=== PATIENT | female | born 2000 | race Caucasian/White ===

== ENCOUNTER 2020-05-09 18:40 | Emergency (ER) | payer OTHER, SELFPAY ==
[2020-05-09 19:03] VITALS: BP 127/76; PULSE 65; RESP 16; TEMP 36.2; O2SAT 99; BMI 32.5
[2020-05-09] MEDS: KETOROLAC 60 MG/2 ML VIAL 30 MG IM (19:56)
--- NOTE | 2020-05-09 20:54 | ED.FEMALEGU ---
HPI - Female Genitourinary General Chief complaint: Abdominal Pain Stated complaint: states has a cyst Time Seen by Provider: 05/09/20 18:52 Source: patient Mode of arrival: Ambulatory Limitations: no limitations History of Present Illness HPI Narrative: 19-year-old female daily smoker presents with a chief complaint of ongoing left lower quadrant pain. She has been having the symptoms for a few days and presented to the emergency department in [place] yesterday. She had a very thorough evaluation including labs as well as an ultrasound and was diagnosed with a UTI and an ovarian cyst. 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 Patient presents tonight due to ongoing pain. She states she has not been taking any of her pain medications, only Tylenol. She has been taking the antibiotics however. She denies any new symptoms. She is not dizzy nor weak or lightheaded. She denies chest pain or shortness of breath. She has no fever or chills. She denies vaginal bleeding or discharge. MD Complaint: pelvic pain Onset (ago): day(s) Location: LLQ Severity: moderate Quality: Aching Duration: constant Patient : No Related Data Previous Rx's Medication Instructions Recorded ketorolac 10 mg PO Q6H PRN #20 tab 05/09/20 Review of Systems Constitutional Constitutional: Denies chills, Denies fatigue, Denies fever(s), Denies frequent falls, Denies lethargy and Denies weakness Eyes Eyes: Denies change in vision, Denies eye discharge, Denies irritation and Denies loss of vision ENT Ears, Nose, Mouth, and Throat: Denies change in voice, Denies dizziness, Denies neck pain, Denies sore throat and Denies throat swelling Cardiovascular Cardiovascular: Denies chest pain, Denies irregular heart rhythm, Denies lightheadedness, Denies palpitations, Denies dyspnea, Denies dyspnea on exertion and Denies orthopnea Respiratory Respiratory: Denies cough, Denies dyspnea, Denies dyspnea on exertion and Denies wheezing Gastrointestinal Gastrointestinal: Denies abdominal pain, Denies change in bowel habits, Denies diarrhea, Denies nausea and Denies vomiting Genitourinary Genitourinary: Reports pelvic pain Musculoskeletal Musculoskeletal: Denies neck pain and Denies numbness Integumentary/Breasts Skin/Breast: Denies pruritus, Denies erythema, Denies rash and Denies wounds Neurologic Neurologic: Denies behavioral changes, Denies confusion, Denies dizziness, Denies frequent falls, Denies loss of vision, Denies numbness and Denies weakness Psychiatric Psychiatric: Denies anxiety, Denies behavioral changes, Denies confusion, Denies depression, Denies homicidal ideation and Denies suicidal ideation Endocrine Endocrine: Denies fatigue, Denies flushing and Denies palpitations Hematologic/Lymphatic Hematologic/Lymphatic: Denies easy bruising Allergic/Immunologic Allergic/Immunologic: Denies urticaria, Denies throat swelling and Denies wheezing Patient History alcohol intake frequency: holidays/special occasions only Substance Use Type: does not use Exam Narrative Exam Narrative: GEN: AOx3 and in mild distress EYES: Pupils are equal, round, and reactive to light and accommodation. Extraoccular muscles are intact bilaterally. There is no subconjunctival hemorrhage or exudate. CHEST: Lungs are clear to auscultation bilaterally and free of wheezes, rales, or rhonchi. Heart rate is regular rhythm, there are no murmurs, clicks, rubs, or gallops. There is no chest wall tenderness. ABD: Abdomen is soft and nontender. There is no guarding or rebound. Bowel sounds are normal in all 4 quadrants. There is no mass or organomegaly. EXT: Full painless ROM of all extremities with no loss of sensation or strength. SKIN: Warm, pink, and dry. No erythema or rash Initial Vital Signs Initial Vital Signs: Vital Signs Temperature 97.1 F L 05/09/20 19:03 Pulse Rate 65 05/09/20 19:03 Respiratory Rate 16 05/09/20 19:03 Blood Pressure 127/76 05/09/20 19:03 Pulse Oximetry 99 05/09/20 19:03 Course Course Course Narrative: Records from [place] were difficult to obtain, but eventually received and confirmed what patient described. Very well documented exam including normal pelvic exam. Urine notes UTI and pelvic ultrasound is very reassuring and only notes L ovarian cyst. Orders Ordered: Discontinued Medications Ketorolac Tromethamine (Ketorolac 60 Mg/2 Ml Vial) 30 mg IM NOW ONE Stop: 05/09/20 19:27 Last Admin: 05/09/20 19:56 Dose: 30 mg Documented by: YESSY Vital Signs Vital signs: Vital Signs - 8 hr 05/09/20 19:03 05/09/20 22:37 Temperature 97.1 F L Pulse Rate 65 67 Respiratory Rate 16 14 Blood Pressure 127/76 121/84 Pulse Oximetry 99 99 MDM - Female Genitourinary MDM Narrative Medical decision making narrative: Patient's exam and story are very reassuring. Once the chart no was obtained from the outside facility I discussed with the patient that in my opinion very little would be gained by doing additional diagnostics, lab work or even pelvic exam. She was in agreement. We discussed ongoing use of antibiotics as well as the addition of NSAIDs to her regimen. She is in complete agreement with this plan. She has been given return precautions and understands the need for follow-up. She has had questions answered to her apparent satisfaction Discharge Plan Departure Patient Disposition: Home Clinical Impression: Cyst of left ovary UTI (urinary tract infection) Qualifiers: Urinary tract infection type: acute cystitis Hematuria presence: without hematuria Qualified Code(s): N30.00 - Acute cystitis without hematuria Instructions: DI for Urinary Tract Infection (UTI), DI for Ovarian Cyst Activity Restrictions/Additional Instructions: *You have been diagnosed with [urinary tract infection and left ovarian cyst] *What to do: *Take medications as directed: Prescription for nonnarcotic pain medications sent to [facility] *Follow up with your primary care provider in 2-3 days, call for an appointment. Let them know you were seen in the Emergency Department and that we ask that you be seen in follow up *Return to ER if you should have any new, worsening or concerning symptoms Prescriptions: New ketorolac 10 mg tablet 10 mg PO Q6H PRN (Reason: pain) Qty: 20 RF: 0
[2020-05-09 22:37] VITALS: BP 121/84; PULSE 67; RESP 14; O2SAT 99
== END 2020-05-09 22:39 | disposition home or self-care (01) ==
PROVIDERS: Emergency Provider Emergency Medicine
DX: N83.202 Unspecified ovarian cyst, left side (principal); N30.00 Acute cystitis without hematuria
CPT/HCPCS: 96372; 99281; 99283; J1885

== ENCOUNTER 2024-10-01 21:33 | Emergency (ER) | payer OTHER, SELFPAY ==
[2024-10-01 21:37] VITALS: BP 148/83; PULSE 111; RESP 17; TEMP 37.4; O2SAT 98; BMI 41.6
--- NOTE | 2024-10-01 21:46 | DI.RAD.S_ITS ---
PROCEDURE: XR CHEST 1V INDICATIONS: Chest Pain TECHNIQUE: One view of the chest was acquired. COMPARISON: None. FINDINGS: Surgical changes and devices: None. Lungs and pleura: Lungs are clear. No pleural effusions or pneumothorax. Mediastinum: Mediastinal contours appear normal. Heart size is normal. Bones and chest wall: No suspicious bony lesions. Overlying soft tissues appear unremarkable. IMPRESSION: No acute cardiopulmonary abnormalities or focal consolidation. Dictated by: Abdi Meyer M.D. on 10/01/2024 at 22:37 Approved by: Abdi Meyer M.D. on 10/01/2024 at 22:37
--- NOTE | 2024-10-01 21:50 | EKG_ITS ---
[address] [address] Test Date: 2024-10-01 Pat Name: Penelope Bowden Department: [facility] Room: Gender: Female Hr Business Partner: : [id number] Requested By: Order Number: [id number] Reading MD: Roland Mccoy Measurements Intervals [place] Rate: 94 P: 54 MD: 160 QRS: 73 QRSD: 88 T: 43 QT: 336 QTc: 420 Interpretive Statements Sinus rhythm with marked sinus arrhythmia Electronically Signed On 10-03-2024 0:11:51 PDT by Roland Mccoy
[2024-10-01] MEDS: ASPIRIN 81 MG CHEW TAB 324 MG PO (22:02)
[2024-10-01 22:06] LABS: Add Manual Diff / Slide Review NO; Basophils Absolute Auto 0 /uL (0-100); Basophils Percent Auto 0.5 % (0-2); Eosinophils Absolute Auto 200 /uL (0-450); Hematocrit 43.5 % (36-46); Hemoglobin 14.8 g/dL (12.0-16.0); Lymphocytes Absolute Auto 3100 /uL (1100-4500); Lymphocytes Percent Auto 35.2 % (25-40); Mean Corpuscular HGB Conc 34.1 % (30-36); Mean Corpuscular Hemoglobin 30.2 PG (26-34); Mean Corpuscular Volume 88.6 fL (80-100); Monocytes Absolute Auto 800 /uL (0-900); Monocytes Percent Auto 8.7 % (3-14); Neutrophils Absolute Auto 4700 /uL (1500-7000); Neutrophils Percent Auto 53.6 % (50-75); Platelet Count 317 X10^3/uL (150-400); White Blood Cell Count 8.8 X10^3/uL (4.5-11.0)
--- NOTE | 2024-10-01 22:09 | ED.GENADULT ---
HPI - General Adult General Chief complaint: Syncope Stated complaint: FINTING HIGH AND LOW BP Time Seen by Provider: 10/01/24 22:05 Source: patient Mode of arrival: Ambulatory History of Present Illness HPI narrative: Healthy 23-year-old woman comes in with complaints of fainting, increasing fatigue all worse over the last 3 weeks. Four weeks ago she notes she would a mild viral infection with slight cough that seemed to improve. Six weeks ago she would an ankle injury and was in ankle boot that was just removed within the last couple of days. She notes that she will have episodes where her heart rate is quite low and then quite high. She can become dizzy and feel close to syncope rest and also describes significant worsening of something when going from a sitting to standing position. She feels she is been eating and voiding appropriately. No fevers over the last couple of weeks. Intermittent headaches, no chest pain or palpitations. Related Data Previous Rx's ?Medication ?Instructions ?Recorded ketorolac 10 mg tablet 10 mg PO Q6H PRN pain #20 tabs 05/09/20 Allergies Allergy/AdvReac Type Severity Reaction Status Date / Time ciprofloxacin (From Cipro) Allergy hives Verified 10/01/24 21:40 Sulfa (Sulfonamide Allergy Hives Verified 10/01/24 21:40 Antibiotics) Review of Systems Review of Systems Narrative: Pertinent positive and negative findings as per HPI Patient History Smoking Status: Former smoker alcohol intake frequency: holidays/special occasions only Exam Initial Vital Signs Initial Vital Signs: Vital Signs Temperature 99.3 F 10/01/24 21:37 Pulse Rate 111 H 10/01/24 21:37 Respiratory Rate 17 10/01/24 21:37 Blood Pressure 148/83 H 10/01/24 21:37 Pulse Oximetry 98 10/01/24 21:37 Oxygen Delivery Method Room Air 10/01/24 21:37 General: Healthy appearing, in no acute distress. Able to give a complete and coherent history. Well-nourished well-developed HEENT: Moist mucous membranes, normal sclera with reactive pupils, Neck: No JVD, supple Respiratory: Lungs are clear to auscultation, no wheezing no rales no rhonchi. Full and symmetrical air movement Cardiac: Tachycardic with otherwise Regular rate and rhythm no murmurs Abdomen: Soft, nontender, no rebound or guarding, no flank pain Skin: Slightly pale but otherwise Warm and dry, no rashes Neurologic: Grossly neurologically intact with no obvious asymmetries or abnormalities Extremities: Small ankle brace/support in the left ankle. No significant swelling or tenderness to the calf Psych: Cooperative, appropriate insight and affect Course Orders Ordered: ED Orders 10/01/24 21:46 XR chest 1V Stat EKG-12 Lead Stat 10/01/24 21:55 Complete Blood Count AUTO DIFF Stat Comprehensive Metabolic Panel Stat Lipase Stat Magnesium Stat NT-proBNP (BNP-Adult 18+) Stat PTT Partial Thromboplastin Gold Stat Prothrombin Time INR Stat Troponin & CK Cardiac Panel Stat Urine Culture Stat Urine Microscopic Stat 10/01/24 23:02 CT angio chest PE protocol Stat Ondansetron HCl (Ondansetron 4 Mg/2 Ml Inj) 4 mg IV NOW PRN PRN Reason: Nausea And Vomiting Ondansetron HCl (Ondansetron 4 Mg Odt) 4 mg PO NOW PRN PRN Reason: Nausea And Vomiting Discontinued Medications Acetaminophen (Acetaminophen 325 Mg Tablet) 325 mg PO NOW ONE Stop: 10/02/24 02:28 Last Admin: 10/02/24 02:49 Dose: 325 mg Aspirin (Aspirin 81 Mg Chew Tab) 324 mg PO NOW ONE Stop: 10/01/24 21:47 Last Admin: 10/01/24 22:02 Dose: 324 mg Documented By: SHERIF Sodium Chloride (Normal Saline 0.9%) 1,000 mls @ 1,000 mls/hr IV BOLUS ONE Stop: 10/01/24 23:09 Last Infusion: 10/02/24 00:50 Dose: Infused Ibuprofen (Ibuprofen 400 Mg Tablet) 400 mg PO NOW ONE Stop: 10/02/24 02:28 Last Admin: 10/02/24 02:48 Dose: 400 mg Methylprednisolone (Methylprednisolone 125 Mg/2 Ml Vial) 125 mg IV NOW ONE Stop: 10/01/24 23:24 Last Admin: 10/02/24 03:01 Dose: Not Given Vital Signs Vital signs: Vital Signs - 8 hr 10/01/24 21:37 10/01/24 22:27 10/02/24 00:43 Temperature 99.3 F Pulse Rate 111 H 100 H 85 Respiratory Rate 17 15 18 Blood Pressure 148/83 H 137/80 Pulse Oximetry 98 98 99 Oxygen Delivery Method Room Air Room Air 10/02/24 01:00 10/02/24 01:30 10/02/24 02:00 Temperature Pulse Rate 98 H 93 H 84 Respiratory Rate 23 21 Blood Pressure Pulse Oximetry 98 97 97 Oxygen Delivery Method 10/02/24 02:15 10/02/24 02:15 10/02/24 02:30 Temperature Pulse Rate 89 92 H Respiratory Rate 18 20 Blood Pressure 117/64 Pulse Oximetry 97 96 Oxygen Delivery Method 10/02/24 03:00 10/02/24 03:30 10/02/24 04:05 Temperature Pulse Rate 77 95 H 86 Respiratory Rate 17 Blood Pressure Pulse Oximetry 96 96 95 Oxygen Delivery Method 10/02/24 04:05 Temperature Pulse Rate Respiratory Rate 18 Blood Pressure 148/91 H Pulse Oximetry Oxygen Delivery Method Medical Decision Making Lab Data 10/01/24 21:55 10/01/24 21:55 Labs: Lab Results 10/01/24 Range/Units 21:55 WBC 8.8 (4.5-11.0) X10^3/uL RBC 4.90 (4.0-5.2) X10^6/uL Hgb 14.8 (12.0-16.0) g/dL Hct 43.5 (36-46) % MCV 88.6 (80-100) fL MCH 30.2 (26-34) PG MCHC 34.1 (30-36) % RDW 13.0 (11.6-14.8) % Plt Count 317 (150-400) X10^3/uL Neut % (Auto) 53.6 (50-75) % Lymph % (Auto) 35.2 (25-40) % [place] % (Auto) 8.7 (3-14) % Eos % (Auto) 2.0 (2-4) % Baso % (Auto) 0.5 (0-2) % Neut # (Auto) 4700 (3750-1415) /uL Lymph # (Auto) 3100 (7025-7152) /uL [place] # (Auto) 800 (0-900) /uL Eos # (Auto) 200 (0-450) /uL Baso # (Auto) 0 (0-100) /uL PT 11.6 (9.4-12.5) SECONDS INR 1.0 (0.9-1.3) APTT 37 H (25.1-36.5) SECONDS Sodium 138 (137-145) mmol/L Potassium 3.6 (3.4-5.1) mmol/L Chloride 104 (98-107) mmol/L Carbon Dioxide 27 (22-32) mmol/L BUN 11 (7-17) mg/dL Creatinine 0.62 (0.52-1.04) mg/dL Estimated GFR > 60 (>60) mL/min BUN/Creatinine Ratio 17.7 (6-22) Glucose 120 H (70-99) mg/dL Calcium 9.7 (8.4-10.2) mg/dL Magnesium 1.9 (1.6-2.3) mg/dL Total Bilirubin 0.4 (0.2-1.3) mg/dL AST 27 (14-36) IU/L ALT 26 (<35) IU/L Alkaline Phosphatase 129 H (38-126) U/L Total Creatine Kinase 55 (30-135) U/L Troponin I < 0.012 (0.01-0.034) ng/mL NT-Pro-B Natriuret Pep 24 (<125) pg/mL Total Protein 8.0 (6.3-8.2) g/dL Albumin 4.6 (3.5-5.0) g/dL Globulin 3.4 (1.7-4.1) g/dL Albumin/Globulin Ratio 1.4 (1.0-2.8) Lipase 55 (23-300) U/L Urine RBC None seen (0-5/HPF) Urine WBC 10-30/hpf H (0-5/HPF) Ur Squamous Epith Cells 5-10 /hpf H (0-5/HPF) Urine Bacteria Moderate (10-30) H (None) Ur Culture Indicated? Specimen cultured Vol Urine Centrifuged 10ml (spun) Point of Care Testing Test Results Negative Urine Dip Bedside Urine Glucose Negative Bedside Urine Bilirubin - Negative Bedside Urine Ketone - Negative Urine Specific [place] 1.020 Bedside Urine Occult Blood - Negative Bedside Urine pH 6 Bedside Urine Protein - Negative Bedside Urine Urobilinogen - Negative Bedside Urine Nitrite - Negative Bedside Urine Leukocytes ++ 125 Esterase Point of care testing: Point of Care Testing Test Results Negative Urine Dip Bedside Urine Glucose Negative Bedside Urine Bilirubin - Negative Bedside Urine Ketone - Negative Urine Specific [place] 1.020 Bedside Urine Occult Blood - Negative Bedside Urine pH 6 Bedside Urine Protein - Negative Bedside Urine Urobilinogen - Negative Bedside Urine Nitrite - Negative Bedside Urine Leukocytes ++ [address] scan - chest: Radiologist's Impression: PROCEDURE: CT ANGIO CHEST PE PROTOCOL INDICATIONS: suspected PE TECHNIQUE: After the administration of intravenous contrast, 2 mm thick sections acquired from the pulmonary apices to the posterior costophrenic angles. 3-dimensional maximum intensity projection (MIP) coronal and sagittal reformats were then acquired through the thorax. For radiation dose reduction, the following was used: automated exposure control, adjustment of mA and/or kV according to patient size. COMPARISON: None. FINDINGS: Image quality: Nondiagnostic due to patient body habitus and timing of contrast. Pulmonary arteries: Normal caliber pulmonary arteries. No central or definite proximal pulmonary emboli. Peripheral emboli cannot be evaluated. Lower Neck: No enlarged lymph nodes. Thyroid: Partially imaged, normal. Axillae: No enlarged lymph nodes. Chest Wall: Unremarkable. Bones: Unremarkable. Lungs and Pleura: No nodule, mass, ground-glass opacity, or consolidation. Central and peripheral airways are normal without bronchial wall thickening or bronchiectasis.. No pleural effusion or pneumothorax. Heart: Heart size is normal. No pericardial effusion. Thoracic Vessels: No aortic aneurysm. Mediastinum and [place]: No enlarged lymph nodes. Esophagus: No wall thickening. No hiatal hernia. Upper Abdomen: Visualized upper abdomen solid organs and bowel loops appear normal. IMPRESSION: Nondiagnostic exam. No large central pulmonary embolus. No secondary signs such as pleural effusion, pulmonary infarct, or right heart strain to suggest significant burden of occult emboli. No acute cardiopulmonary process. Dictated by: Dulce Rudolph M.D. on 10/02/2024 at 0:50 MDM Narrative Medical decision making narrative: CC: Fatigue and syncope increasing over the last 3 weeks Complicating co-morbidities: Viral syndrome 4 weeks ago, ankle boot removed couple of days ago after left ankle injury Data collected from: patient Differential considered: , dehydration with orthostasis, post COVID, long COVID, pots related to COVID, cardiomyopathy, severe anemia, electrolyte abnormalities Exam documented above, pertinent findings include: Exam is relatively benign aside from sinus tachycardia Lab Test results independently reviewed as above. Pertinent findings: CBC is unremarkable, no anemia Chemistries are reassuring. Normal creatinine Troponin is undetectable BNP is low Lipase is unremarkable Urine has bacteria and white cells however significant squamous cells as well. We will reserve treatment until culture returns positive EKG: Sinus rhythm with marked sinus arrhythmia at a rate of 94. No acute ischemic changes Imaging studies independently reviewed: Chest x-ray is unremarkable CT angiogram of the chest is done due to her tachycardia, symptoms in recent lower extremity immobilization. CT scan does not show acute findings specifically no PE and no parenchymal disease Treatments: Tylenol, ibuprofen, a L of fluid, aspirin, Zofran Discussion: 23-year-old woman with 3 weeks of increasing fatigue, unexplained syncope, erratic blood pressure both high and low as well as heart rate high and low. Recent ankle injury and just got out of her boot. Workup is quite reassuring. She does feel better after a L of fluid, is not orthostatic. CT scan of the chest shows no pulmonary embolism, aortic abnormalities, pneumonia, cardiomyopathy. Blood work is reassuring with no sign of infection, significant electrolyte abnormalities or renal dysfunction. Patient is describing increasing stressors recently, she had a baby on October 16 of last year who had known severe coarctation and within an hour of being born. As that anniversary is coming closer her stress levels are increasing. She is done quite a bit of research on pots and, unfortunately, I think that may be a good fit for her current symptoms. It is slightly suspicious that she had an upper respiratory infection just prior to onset of said symptoms and some of the correlation research between COVID and pots. She does have an appointment with her primary care physician coming up. Talked about considering Zio patch and echocardiogram as part of her continued outpatient workup as well as lifestyle, diet, nutrition and fluid balance management. We also discussed counseling for her to work through some of these intense emotions she approaches the year anniversary of the of her baby. There was no indication for hospitalization or further workup this time she is safe for discharge Discharge Plan Departure Patient Disposition: Home Clinical Impression: Orthostatic hypotension Fatigue Qualifiers: Fatigue type: unspecified Qualified Code(s): R53.83 - Other fatigue Instructions: DI for Syncope in Adults (Fainting) Activity Restrictions/Additional Instructions: Thank you for coming in today Fortunately, your workup does not show any life-threatening abnormalities. There was no evidence of infection, kidney difficulties, electrolyte abnormalities, no blood clots in your lungs, your aorta is absolutely normal, and there was no sign of the any heart abnormalities Your symptoms do sound very suspiciously like POTs. This is typically a diagnosis of exclusion. They have seen significant jump in this diagnosis after COVID. To continue your workup, consideration of a Zio patch and an echocardiogram as an outpatient would be a reasonable discussion with your primary care physician In the meantime, making sure that you are well hydrated, well rested, managing your own stress, managing exercise and nutrition we will all help. Please do consider talking with a counselor about the of your baby girl. The fact that your symptoms are worsening about the time of her birthday maybe simply coincidental but may also indicate that there are some deeper emotions that deserve your attention. If you find that you are getting worse or develop any new symptoms, please feel free to return to the emergency department for further evaluation. Prescriptions: No Action ketorolac 10 mg tablet 10 mg PO Q6H PRN (Reason: pain) Qty: 20 0RF Stand Alone Forms: Patient Portal/API
[2024-10-01 22:13] LABS: Prothrombin Time 11.6 SECONDS (9.4-12.5)
[2024-10-01 22:16] LABS: PTT Partial Thromboplastin Tim 37 SECONDS (25.1-36.5)
[2024-10-01] MEDS: SODIUM CHLORIDE 0.9% 1,000 ML 1000 ML IV (22:19)
[2024-10-01 22:22] LABS: Alanine Aminotransferase 26 IU/L (<35); Albumin 4.6 g/dL (3.5-5.0); Albumin Globulin Ratio 1.4 (1.0-2.8); Alkaline Phosphatase 129 U/L (38-126); Aspartate Aminotransferase 27 IU/L (14-36); BUN Creatinine Ratio 17.7 (6-22); Bilirubin Total 0.4 mg/dL (0.2-1.3); Blood Urea Nitrogen 11 mg/dL (7-17); Calcium 9.7 mg/dL (8.4-10.2); Carbon Dioxide 27 mmol/L (22-32); Chloride 104 mmol/L (98-107); Creatine Kinase 55 U/L (30-135); Estimated Glomerular Filt Rate > 60 mL/min (>60); Globulin 3.4 g/dL (1.7-4.1); Glucose 120 mg/dL (70-99); HEMOLYSIS < 15 (0-50); Lipase 55 U/L (23-300); Magnesium 1.9 mg/dL (1.6-2.3); Potassium 3.6 mmol/L (3.4-5.1); Sodium 138 mmol/L (137-145)
[2024-10-01 22:27] VITALS: BP 137/80; PULSE 100; RESP 15; O2SAT 98
[2024-10-01 22:34] LABS: NT-proBNP (BNP-Adult 18+) 24 pg/mL (<125); Troponin I < 0.012 ng/mL (0.01-0.034)
[2024-10-01 22:51] LABS: Bacteria Urine Moderate (10-30); RBC Urine None Seen (0-5/HPF); Squamous Epithelial Cell Urine 5-10 /HPF (0-5/HPF); Urine Volume 10mL (spun); WBC Urine 10-30/HPF (0-5/HPF)
[2024-10-01 22:52] LABS: Culture Indicated Urine Specimen Cultured
--- NOTE | 2024-10-01 23:02 | DI.CT.S_ITS ---
PROCEDURE: CT ANGIO CHEST PE PROTOCOL INDICATIONS: suspected PE TECHNIQUE: After the administration of intravenous contrast, 2 mm thick sections acquired from the pulmonary apices to the posterior costophrenic angles. 3-dimensional maximum intensity projection (MIP) coronal and sagittal reformats were then acquired through the thorax. For radiation dose reduction, the following was used: automated exposure control, adjustment of mA and/or kV according to patient size. COMPARISON: None. FINDINGS: Image quality: Nondiagnostic due to patient body habitus and timing of contrast. Pulmonary arteries: Normal caliber pulmonary arteries. No central or definite proximal pulmonary emboli. Peripheral emboli cannot be evaluated. Lower Neck: No enlarged lymph nodes. Thyroid: Partially imaged, normal. Axillae: No enlarged lymph nodes. Chest Wall: Unremarkable. Bones: Unremarkable. Lungs and Pleura: No nodule, mass, ground-glass opacity, or consolidation. Central and peripheral airways are normal without bronchial wall thickening or bronchiectasis.. No pleural effusion or pneumothorax. Heart: Heart size is normal. No pericardial effusion. Thoracic Vessels: No aortic aneurysm. Mediastinum and [place]: No enlarged lymph nodes. Esophagus: No wall thickening. No hiatal hernia. Upper Abdomen: Visualized upper abdomen solid organs and bowel loops appear normal. IMPRESSION: Nondiagnostic exam. No large central pulmonary embolus. No secondary signs such as pleural effusion, pulmonary infarct, or right heart strain to suggest significant burden of occult emboli. No acute cardiopulmonary process. Dictated by: Dulce Rudolph M.D. on 10/02/2024 at 0:50 Approved by: Dulce Rudolph M.D. on 10/02/2024 at 0:54
--- NOTE | 2024-10-01 23:38 | PC.NURSE ---
Pt done with CT, declined solumedrol. States I want to wait to see if it start to get hives, then I will know if I'm allergic to this one. Can't remember if it is iodine contrast she is allergic to. Charge nurse/provider notified.
[2024-10-02] VITALS (9 sets, daily range): BP systolic 117–148; BP diastolic 64–91; PULSE 77–98; RESP 17–23; O2SAT 95–99
[2024-10-02] MEDS: IBUPROFEN 400 MG TABLET PO (02:48)
[2024-10-02] MEDS: ACETAMINOPHEN 325 MG TABLET PO (02:49)
== END 2024-10-02 04:22 | disposition home or self-care (01) ==
PROVIDERS: Emergency Provider Emergency Medicine
DX: I95.1 Orthostatic hypotension (principal); R53.83 Other fatigue
CPT/HCPCS: 36415; 71045; 71275; 80053; 81003; 81015; 81025; 82550; 83690; 83735; 83880; 84484; 85025; 85610; 85730; 87086; 87147; 93005; 96360; 96361; 99284; Q9967